=== PATIENT | male | born 1955 | race Caucasian/White ===

== ENCOUNTER 2021-02-25 14:49 | Emergency (ER) | payer MEDICARE, OTHER, SELFPAY ==
[2021-02-25 14:52] VITALS: BP 163/82; PULSE 64; RESP 16; TEMP 36.6; O2SAT 97
--- NOTE | 2021-02-25 15:09 | ED_ITS ---
HPI - Wound/Laceration General Chief Complaint: Wound/Laceration Stated Complaint: FALL HIT HEAD LACERATION Time Seen by Provider: 02/25/21 14:54 Source: patient Mode of arrival: Ambulatory History of Present Illness HPI narrative: cut to his head. He reports that he was tying off his dhingy to his yacht and tripped over the rope which caused him to fall forward hitting his head against the outboard. He denies any loss of consciousness, vision changes, headache, nausea, vomiting or any other acute concerns or complaints. Last tetanus is unknown but likely over 5 years per patient. This fall occurred approximately 30 minutes prior to arrival. Related Data Allergies Allergy/AdvReac Type Severity Reaction Status Date / Time No Known Drug Allergies Allergy Verified 02/25/21 15:21 Review of Systems Review of Systems ROS Unobtainable: All systems reviewed & are unremarkable except as noted in HPI and below Exam Narrative Exam Narrative: Exam Narrative: Const General: cooperative, healthy appearing, comfortable, no acute distress, well developed and well groomed Nutritional Appearance: average body habitus Orientation: alert and oriented x3 HENMT Head: 2.5 centimetre superficial linear laceration just above hairline. Not currently bleeding. No underlying bony tenderness. Ears: hearing grossly normal bilaterally , no hemotympanum noted Nose: external nose normal and nares normal Face and sinus: normal facial exam Neck Neck: normal visual inspection and supple Resp Effort & Inspection: normal respiratory effort, able to speak in complete sentences, no audible wheezes, not labored, no nasal flaring and no respiratory distress Neuro General: alert, oriented x3, gait normal, tone normal and moves all extremities, no cranial nerves deficits, normal coordination Cognition: normal cognition Speech: speech normal Gait: normal gait Psych Appearance: grossly normal and well kempt Mental Status: mental status grossly normal Speech and Movement: speech and movement normal Mood: congruent mood Affect: normal affect Initial Vital Signs Initial Vital Signs: Vital Signs Temperature 97.9 F 02/25/21 14:52 Pulse Rate 64 02/25/21 14:52 Respiratory Rate 16 02/25/21 14:52 Blood Pressure 163/82 H 02/25/21 14:52 Pulse Oximetry 97 02/25/21 14:52 Course Orders Ordered: Discontinued Medications Diphtheria/Tetanus/Acell Pertussis (Tet,Diph,Pertuss(Acell),Vac/Pf 0.5 Ml Syringe) 0.5 ml IM .ONCE ONE Stop: 02/25/21 15:31 Last Admin: 02/25/21 15:25 Dose: 0.5 ml Documented by: BTONER Vital Signs Vital signs: Vital Signs - 8 hr 02/25/21 14:52 Temperature 97.9 F Pulse Rate 64 Respiratory Rate 16 Blood Pressure 163/82 H Pulse Oximetry 97 MDM - Wound/Laceration Medical Records Attestation: I reviewed the patient's medical records. [facility] Narrative Medical decision making narrative: intracranial injury and skull fracture considered. Currently no signs of skull fracture at this time. He is neurologically intact and does not have any significant bony tenderness. no rhinorrhea or Hemotympanum. No loss of consciousness. he otherwise appears well at this time. This was a mechanical fall and was not due to syncope or seizure per patients history. Discharge Plan Departure Patient Disposition: Home Clinical Impression: Laceration Clinical Impression: (Ruled Out): Avulsion of skin Discharge Date/Time: 02/25/21 15:54 Instructions: DI for Laceration Repair, DI for Wound Infection Activity Restrictions/Additional Instructions: Monitor for signs of infection. Return if increased redness, swelling, pain occurs. Also monitor for significantly worsening headache, vision changes, vomiting or any other acute concerns or complaints. Patient verbalizes understanding and agrees to plan and has no further concerns at this time. Thank you A [id number] system was used with the dictation of this note. Please disregard any spelling or grammatical errors.
[2021-02-25] MEDS: TET,DIPH,PERTUSS(ACELL),VAC/PF 0.5 ML SYRINGE IM (15:25)
== END 2021-02-25 15:54 | disposition home or self-care (01) ==
PROVIDERS: Emergency Provider Physician Assistant
DX: S01.01XA Laceration without foreign body of scalp, initial encounter (principal); W22.8XXA Striking against or struck by other objects, initial encounter; Z23 Encounter for immunization
CPT/HCPCS: 90471; 99283; 90715